=== PATIENT | male | born 1930 | race Caucasian/White ===

== ENCOUNTER 2019-07-06 07:42 | Day surgery (SDC) | payer OTHER ==
[~2019-07-06 07:42] MED LIST: CYMBALTA PO; GABAPENT PO; [UNRECOGNIZED DRUG - OTHER] PO; [UNRECOGNIZED DRUG - OTHER] PO
== END 2019-07-06 12:50 | disposition home or self-care (01) ==
LOC: CIR.AMB 07:42
DX: M48.061 Spinal stenosis, lumbar region without neurogenic claudication (principal)